=== PATIENT | male | born 1980 | race Caucasian/White ===

== ENCOUNTER 2017-10-16 14:33 | Emergency (ER) | payer OTHER ==
[2017-10-16 14:39] VITALS: RESP 18
[2017-10-16 15:10] LABS: Glucose,Whole Blood 121 mg/dL (75-99)
[2017-10-16 15:37] LABS: Basophils % (A) 0 %; Eosinophils % (A) 0 %; HCT 42.8 % (39.0-53.0); HGB 14.7 gm/dL (13.0-17.5); Lymphocytes # (A) 1.5 k/uL (1.0-4.8); Lymphocytes % (A) 21 %; MCHC 34.4 g/dL (31.0-37.0); MCV 92.9 fL (80.0-100.0); Mean Platelet Volume 7.3; Monocytes # (A) 0.4 k/uL (0-1.0); Monocytes % (A) 6 %; Neutrophils % (A) 70 %; Platelet Count 218 k/uL (150-450); RBC 4.61 m/uL (4.30-5.90); RDW 12.4 % (11.5-15.5)
[2017-10-16 15:48] LABS: ALT 62 U/L (21-72); AST 77 U/L (17-59); Albumin 5.3 g/dL (3.5-5.0); Alkaline Phosphatase 49 U/L (38-126); Anion Gap 18 mmol/L; Blood Urea Nitrogen 12 mg/dL (9-20); Carbon Dioxide 23 mmol/L (22-30); Chloride 94 mmol/L (98-107); Glucose 115 mg/dL (74-99); Potassium 3.8 mmol/L (3.5-5.1); Sodium 135 mmol/L (137-145); Total Bilirubin 1.1 mg/dL (0.2-1.3); Total Protein 8.1 g/dL (6.3-8.2)
[2017-10-16 15:57] LABS: Creatine Kinase 561 U/L (55-170); Partial Thromboplastin Time 23.1 sec (22.0-30.0); Prothrombin Time 9.8 sec (9.0-12.0)
[2017-10-16 16:09] LABS: Troponin I <0.012 ng/mL (0.000-0.034)
[2017-10-16 16:19] LABS: Creatine Kinase MB 5.8 ng/mL (0.0-2.4)
--- NOTE | 2017-10-16 16:21 | CT ---
EXAMINATION TYPE: CT brain wo con DATE OF EXAM: 10/16/2017 COMPARISON: NONE HISTORY: Patient complains of bilateral arm, hand, and facial numbness. CT DLP: 1109 mGycm. Automated Exposure Control for Dose Reduction was Utilized. TECHNIQUE: CT scan of the head is performed without contrast. FINDINGS: There is no acute intracranial hemorrhage, mass effect, or midline shift identified. No suspicious extra-axial fluid collection. The ventricles and sulci are within normal limits in size. The globes are intact and the visualized sinuses are clear. IMPRESSION: No acute intracranial hemorrhage, mass effect, or midline shift is seen. Given the patie nt's symptoms MRI could be performed.
--- NOTE | 2017-10-16 17:28 | ED ---
Neuro HPI - General Chief Complaint: Neuro Symptoms/Deficit Stated Complaint: Arm/Facial Numbness/Difficulty Breathing Time Seen by Provider: 10/16/17 15:29 Source: patient Mode of arrival: ambulatory Limitations: no limitations - History of Present Illness Is the patient presenting with stroke symptoms?: No Initial Comments: Presents with the numbness of both arms short-winded blurred vision and neck numbness of generalized numbness of the body, started about 145 and lasted for about 45 minutes he is feeling better he has a history of panic attack about 6 years ago he has no history of depression noticed history of firm other psych disorders he has been on Vyvanse for about 20 years now. He denies any headache , vision is still bit bloated no chest pain is short-winded no chest pain no abdominal pain no frequency urgency dysuria no motor deficits of upper or lower extremities - Related Data Home Medications: Home Medications Medication Instructions Recorded Confirmed Lisdexamfetamine Dimesylate 70 mg PO QAM 04/10/14 10/16/17 [Vyvanse] Multivitamins, Thera [Multivitamin 1 tab PO DAILY 10/16/17 10/16/17 (formulary)] Allergies/Adverse Reactions: Allergies Allergy/AdvReac Type Severity Reaction Status Date / Time No Known Allergies Allergy Verified 10/16/17 15:02 Review of Systems ROS Statement: Those systems with pertinent positive or pertinent negative responses have been documented in the HPI. ROS Other: All systems not noted in ROS Statement are negative. General Exam - General Exam Comments Initial Comments: General: The patient is awake and alert, in no distress, and does not appear acutely ill. Skin: Skin is warm and dry and no rashes or lesions are noted. Eye: Pupils are equal, round and reactive to light, extra-ocular movements are intact; there is normal conjunctiva bilaterally. Ears, nose, mouth and throat: There are moist mucous membranes and no oral lesions. Neck: The neck is supple, there is no tenderness or JVD. Cardiovascular: There is a regular rate and rhythm. No murmur, rub or gallop is appreciated. Respiratory: To auscultation bilateral, no wheezing no rhonchi no distress respiratory nunez noticed Gastrointestinal: Soft, non-distended, non-tender abdomen without masses or organomegaly noted. There is no rebound or guarding present. Bowel sounds are unremarkable. Back: There is no tenderness to palpation in the midline. There is no obvious deformity. Musculoskeletal: Normal ROM, no tenderness, There is no pedal edema. There is no calf tenderness or swelling. No cords were appreciated. Neurological: CN II-XII intact, Cranial nerves III through XII are intact. There are no obvious motor or sensory deficits. Coordination appears grossly intact. Speech is normal. Psychiatric: Cooperative, appropriate mood & affect, normal judgment. He is bit anxious Limitations: no limitations Stroke MDM - Lab Data Result diagrams: 10/16/17 14:44 10/16/17 14:44 Lab Results 10/16/17 10/16/17 10/16/17 Range/Units 14:44 14:44 14:44 WBC 7.0 (3.8-10.6) k/uL RBC 4.61 (4.30-5.90) m/uL Hgb 14.7 (13.0-17.5) gm/dL Hct 42.8 (39.0-53.0) % MCV 92.9 (80.0-100.0) fL MCH 32.0 (25.0-35.0) pg MCHC 34.4 (31.0-37.0) g/dL RDW 12.4 (11.5-15.5) % Plt Count 218 (150-450) k/uL Neutrophils % 70 % Lymphocytes % 21 % Monocytes % 6 % Eosinophils % 0 % Basophils % 0 % Neutrophils # 5.0 (1.3-7.7) k/uL Lymphocytes # 1.5 (1.0-4.8) k/uL Monocytes # 0.4 (0-1.0) k/uL Eosinophils # 0.0 (0-0.7) k/uL Basophils # 0.0 (0-0.2) k/uL PT (9.0-12.0) sec INR (<1.2) APTT (22.0-30.0) sec Sodium 135 L (137-145) mmol/L Potassium 3.8 (3.5-5.1) mmol/L Chloride 94 L (98-107) mmol/L Carbon Dioxide 23 (22-30) mmol/L Anion Gap 18 mmol/L BUN 12 (9-20) mg/dL Creatinine 0.80 (0.66-1.25) mg/dL Est GFR (CKD-EPI)AfAm >90 (>60 ml/min/1.73 sqM) Est GFR (CKD-EPI)NonAf >90 (>60 ml/min/1.73 sqM) Glucose 115 H (74-99) mg/dL POC Glucose (mg/dL) (75-99) mg/dL POC Glu [employer] Developer ID Calcium 11.0 H (8.4-10.2) mg/dL Total Bilirubin 1.1 (0.2-1.3) mg/dL AST 77 H (17-59) U/L ALT 62 (21-72) U/L Alkaline Phosphatase 49 (38-126) U/L Total Creatine Kinase 561 H (55-170) U/L CK-MB (CK-2) 5.8 H* (0.0-2.4) ng/mL CK-MB (CK-2) Rel Index 1.0 Troponin I <0.012 (0.000-0.034) ng/mL Total Protein 8.1 (6.3-8.2) g/dL Albumin 5.3 H (3.5-5.0) g/dL 10/16/17 10/16/17 Range/Units 14:44 15:08 WBC (3.8-10.6) k/uL RBC (4.30-5.90) m/uL Hgb (13.0-17.5) gm/dL Hct (39.0-53.0) % MCV (80.0-100.0) fL MCH (25.0-35.0) pg MCHC (31.0-37.0) g/dL RDW (11.5-15.5) % Plt Count (150-450) k/uL Neutrophils % % Lymphocytes % % Monocytes % % Eosinophils % % Basophils % % Neutrophils # (1.3-7.7) k/uL Lymphocytes # (1.0-4.8) k/uL Monocytes # (0-1.0) k/uL Eosinophils # (0-0.7) k/uL Basophils # (0-0.2) k/uL PT 9.8 (9.0-12.0) sec INR 1.0 (<1.2) APTT 23.1 (22.0-30.0) sec Sodium (137-145) mmol/L Potassium (3.5-5.1) mmol/L Chloride (98-107) mmol/L Carbon Dioxide (22-30) mmol/L Anion Gap mmol/L BUN (9-20) mg/dL Creatinine (0.66-1.25) mg/dL Est GFR (CKD-EPI)AfAm (>60 ml/min/1.73 sqM) Est GFR (CKD-EPI)NonAf (>60 ml/min/1.73 sqM) Glucose (74-99) mg/dL POC Glucose (mg/dL) 121 H (75-99) mg/dL POC Glu [employer] Developer ID Tatiana Kemp Calcium (8.4-10.2) mg/dL Total Bilirubin (0.2-1.3) mg/dL AST (17-59) U/L ALT (21-72) U/L Alkaline Phosphatase (38-126) U/L Total Creatine Kinase (55-170) U/L CK-MB (CK-2) (0.0-2.4) ng/mL CK-MB (CK-2) Rel Index Troponin I (0.000-0.034) ng/mL Total Protein (6.3-8.2) g/dL Albumin (3.5-5.0) g/dL Past Medical History Past Medical History: No Reported History History of Any Multi-Drug Resistant Organisms: None Reported Past Surgical History: Hernia Repair Past Psychological History: Anxiety, Depression Smoking Status: Current every day smoker Past Alcohol Use History: Occasional Past Drug Use History: None Reported Course Vital Signs 10/16/17 10/16/17 10/16/17 14:36 15:56 16:58 Temperature 97.8 F Pulse Rate 101 H 80 82 Respiratory 18 18 18 Rate Blood Pressure 163/90 141/90 144/97 O2 Sat by Pulse 100 99 100 Oximetry Edges a normal sinus rhythm ventricular rate is 91 KS interval is 160 QRS duration is 110 QT/QTc is 422/08/08/2018 review of this EKG does not reveal any ST elevation or ST depression Plan reassessment is on a percent better I did offer him 24 hours for the observation so we could watch is a neuro status though his head CT is normal, EKG, chest x-ray, troponin, comprehensive metabolic panel, CBC are within normal range. He stated he'll come back if symptoms returned he is comfortable and he intends to go home Disposition Clinical Impression: Shortness of breath, Blurred vision, Bilateral numbness and tingling of arms and legs Disposition: HOME SELF-CARE Condition: Fair Instructions: Paresthesia (ED) Is patient prescribed a controlled substance at d/c from ED?: No Referrals: Guy Montalvo DO [Primary Care Provider] - 1-2 days
[2017-10-16 17:39] VITALS: BP 151/98; PULSE 74; TEMP 97.5
--- NOTE | 2017-10-16 18:25 | XR ---
EXAMINATION TYPE: XR chest 2V DATE OF EXAM: 10/16/2017 COMPARISON: NONE HISTORY: Short of breath TECHNIQUE: Frontal and lateral views of the chest are obtained. FINDINGS: Heart and mediastinum are normal. Lungs are clear. Diaphragm is normal. Bony thorax appear s normal. There are chest leads. IMPRESSION: Normal chest
== END 2017-10-16 17:37 | disposition home or self-care (01) ==
LOC: EC 14:33
DX: H53.8 Other visual disturbances (principal); R20.2 Paresthesia of skin; R20.0 Anesthesia of skin; R06.02 Shortness of breath; F41.9 Anxiety disorder, unspecified; F17.200 Nicotine dependence, unspecified, uncomplicated; Z79.899 Other long term (current) drug therapy
CPT/HCPCS: 36415; 70450; 71046; 80053; 82550; 82553; 84484; 85025; 85610; 85730; 93005; 99284